=== PATIENT | male | born 1990 | race Hispanic/Latino ===

== ENCOUNTER 2024-11-16 12:33 | Emergency (ER) | payer SELFPAY ==
[2024-11-16 12:38] VITALS: BP 145/98
[2024-11-16 15:41] LABS: Glucose - Point of Care 139 mg/dl (70-99)
--- NOTE | 2024-11-16 15:42 | ED.GENMED ---
History of Present Illness
General
Chief Complaint: Eye Problems
Source: patient
Exam Limitations: none
Time Seen by Provider: 11/16/24 14:30
Nursing documentation reviewed up to this point in time: agreed with
History of Present Illness
History of Present Illness:
Patient is a 34-year-old Wallisian-speaking male presents to the ER for evaluation. Language line used for interpretation. Patient reports he has had gradual vision issues for the past year. He did see an microbiology professor in [place] though he
does not know the name. Last saw microbiology professor 1 month ago. he mentions a questionable diagnosis of glaucoma and eye problems related to diabetes as per his microbiology professor.
he presents here for gradual decrease in his vision. He reports the vision is worse in his left eye he almost has no vision from his left eye but the right eye is now decreased as well. He can only see light from the left eye. From the right eye
he describes seeing a white film in the center of his eye but has better vision on the sides of his visual field.
He was prescribed a medicine dorzolamide hydrochloride timolol.
He does have a history of diabetes and high blood pressure however does not have physician and therefore takes no medication. He was on diabetic oral medication previously the past.
Review of Systems
Review of Systems
Allergies reviewed?: Yes
All Other Systems: ROS reviewed and negative except as documented in HPI and ROS
Constitutional: Reports no symptoms
EENT: Reports other (Decreased vision from bilateral eyes worse on the left)
Respiratory: Reports no symptoms
Cardiac: Reports no symptoms
ABD/GI: Reports no symptoms
Musculoskeletal: Reports no symptoms
Skin: Reports no symptoms
Neurological: Reports no symptoms
Psychiatric: Reports no symptoms
Phy Exam
General Physical Exam
General Presentation: no apparent distress
General age: appears stated age
General Skin: warm and dry
General Habitus: normal
General Mental: alert
General Hydration: appears well hydrated
ENT Exam
ENT Exam: other (Patient seems to have difficulty tracking bilateral eyes)
Eye Exam
Eye Exam: PERRL, EOMI and other (Pupils equal reactive left eye mildly injected pressure to left eye 29 , right eye 21, unable to obtain visual acuity due to decreased vision ; left conjunctiva mildly injected )
Eye Exam General: PERRL: bilateral and EOM intact: bilateral
Pupil Exam: Bilateral: round and reactive
Cardiovascular Exam
Cardiovascular Exam: regular rate/rhythm, no murmur and normal peripheral pulses
Neurological Exam
Neurological Exam: alert and oriented x3
Musculoskeletal Exam
Musculoskeletal Exam: full ROM
Skin Exam
Skin Exam: normal color and warm/dry
Psychiatric Exam
Psychiatric Exam: normal mood/affect
Course
Orders/Labs/Results
Orders:
Orders
11/16/24 14:37
Phosphate Enema [Fleet Phosphate Enema-Adult] 135 ml RECTAL NOW STA
Abnormal Lab Results
11/16/24
15:39
POC Glucose 139 H mg/dl
(70-99)
Vital Signs
Initial and Last Documented VS:
Initial Vital Signs
Temp Pulse Resp BP Pulse Ox
98.2 F 80 17 145/98 99
11/16/24 12:38 11/16/24 12:38 11/16/24 12:38 11/16/24 12:38 11/16/24 12:38
Last Documented Vital Signs
Temp Pulse Resp BP Pulse Ox
98.2 F 80 17 145/98 99
11/16/24 12:38 11/16/24 12:38 11/16/24 12:38 11/16/24 12:38 11/16/24 12:38
MDM/Problems Addressed
MDM/Problems Addressed:
As documented patient is a 34-year-old male who is Wallisian-speaking language line was used. He reports has had gradual decreased vision and visual changes for the past year. He has been seen by ophthalmology in [place] and is prescribed
eyedrops for glaucoma. And was told that his changes are likely related to diabetes not treated. patient was last seen by ophthalmology last month however over the past couple weeks reports vision worse of his left eye. His left eye he can only
see the light out of his right eye he reports there is a central area of white he has better vision from his periphery out of his right eye. I am unable to fully get a visual acuity because patient has such decreased vision. He has no associated
headache.
He is not currently on any medications for hypertension diabetes though he does have a history of this. His blood sugar was 139.
As documented above changes are not new they have progressively worsened over the past year. I spoke with ophthalmology on-call they will see him tomorrow in the office at 11 AM patient was given instructions and I discussed the importance of
outpatient follow-up.
In addition aside from ophthalmology since patient does not have a family provider or healthcare insurance we will refer him to [facility]. I did review with patient and girlfriend the importance of being evaluated for his pre-existing
conditions of diabetes and her blood pressure likely will need medications.
Chronic conditions affecting care:
NIDDM, HTN
*Pulse Oximetry
Patient hypoxic: no
*Critical Care Note
Total Time (30-74mins, 75-104mins- exclusive of procedures): Not Applicable
Patient Management
Discussion with other providers: Single Fold Machine Operator (Ophthalmology )
ED Attending Note
-
Portions of this chart may have been created with voice recognition software.� Occasional wrong word or��sound alike� substitutions may have occurred due to the inherent limitations of voice recognition software.
Discharge Plan
Departure
Patient Disposition: Home (Routine Discharge)
Date of Disposition: 11/16/24
Time of Disposition: 16:31
Patient with high blood pressure during this ER visit?: Yes
Condition: Fair
Covid-19: Not Applicable
Discharge Problem:
Vision problem
Instructions: BLOOD PRESSURE
Referrals:
Marisela Domínguez MD [Active] -
NONE,* [Family Provider] -
Activity Restrictions/Additional Instructions:
Ve al oftalmologo manana at 11am
[facility]
[facility]
Dave llame a la victorino�gonzález Marina Verma para programar fransisca lexie para que lo rocío un m�dico para el tratamiento de sanders presi�n arterial y diabetes. [phone]
Interventions
Interventions:
*Risk Screen - Suicide Last Done: 11/16/24 12:43
*General Assessment Last Done: 11/16/24 12:43
*Neglect/Abuse Screening Last Done: 11/16/24 12:43
*ED COVID-19 Vaccine History Last Done: 11/16/24 12:43
*Nursing Disposition Last Done: 11/16/24 16:40
Discharge Date and Time
Discharge Date/Time: 11/16/24 17:02
Print Language: NAMIBIAN
== END 2024-11-16 17:02 | disposition home or self-care (01) ==
LOC: EMR 12:33
PROVIDERS: EMERGENCY PHYSICIAN Emergency Medicine
DX: H53.8 Other visual disturbances (principal); E11.9 Type 2 diabetes mellitus without complications; I10 Essential (primary) hypertension; Z59.71 Insufficient health insurance coverage
CPT/HCPCS: 99282; 82962

== ENCOUNTER → 2024-11-25 16:37 | Outpatient (REF) | payer OTHER, SELFPAY ==
[2024-11-25 17:15] LABS: % Basophils 0.6 % (0-2); % Eosinophils 7.4 % (0-6); % Immature Granulocytes 0.1 % (0-0.5); % Lymphocytes 36.3 % (20.5-51.1); % Monocytes 6.3 % (1.7-9.3); % Neutrophils 49.3 % (42.2-75.2); Absolute Basophils 0.1 10^3/uL (0-0.2); Absolute Eosinophils 0.6 10^3/uL (0-0.7); Absolute Lymphocytes 3.1 10^3/uL (1.2-3.4); Absolute Monocytes 0.5 10^3/uL (0.1-0.6); Absolute Neutrophils 4.2 10^3/uL (1.4-6.5); Hematocrit 46.5 % (39.0-52.0); Hemoglobin 15.9 g/dL (13.0-18.0); Mean Corp Hgb Conc. 34.2 g/dL (33.0-37.0); Mean Corpuscular Hgb 28.3 pg (27.0-31.0); Mean Corpuscular Volume 82.7 fL (80.0-94.0); Mean Platelet Volume 9.9 fL (7.4-10.4); Nucleated Red Blood Cells % 0 % (-); Platelet Count 264 10^3/uL (130-400); Red Blood Cell Count 5.62 10^6/uL (4.70-6.10); Red Cell Dist. Width 12.3 % (11.5-14.5); Reticulocyte Count 1.6 % (0.4-2.8); Urine Albumin Negative (Neg - Trace); Urine Bilirubin Negative (Negative); Urine Character Clear (Clear); Urine Color Yellow; Urine Glucose 4+ (Negative); Urine Ketone Negative (Negative); Urine Leukocyte Negative (Negative); Urine Nitrite Negative (Negative); Urine Occult Blood Negative (Negative); Urine Specific Gravity 1.015 (<1.030); Urine Urobilinogen Negative (Neg - 1+); White Blood Cell Count 8.5 10^3/uL (4.8-10.8)
[2024-11-25 17:36] LABS: ALT (SGPT) 57 U/L (0-50); AST (SGOT) 25 U/L (17-59); Alkaline Phosphatase 57 U/L (38-126); Blood Urea Nitrogen 19 mg/dl (9-20); Calcium 9.8 mg/dl (8.4-10.2); Carbon Dioxide 29 mmol/L (22-30); Chloride 101 mmol/L (98-107); Glucose 374 mg/dl (70-99); HDL Cholesterol 55 mg/dl; LDL Cholesterol, Calculated 95 mg/dl; Potassium 4.6 mmol/L (3.5-5.1); Sodium 140 mmol/L (135-145); Total Bilirubin 0.8 mg/dl (0.2-1.3); Total Cholesterol 183 mg/dl (50-199); Total Protein 8.3 g/dl (6.3-8.2); Triglyceride 168 mg/dl (10-149); Very Low Density Lipoprotein 33 mg/dl (0-30); eGFR > 60.00
[2024-11-25 17:38] LABS: Microalbumin, Random Urine 3.2 mg/dl (0.6-1.7); Microalbumin/creatinine Ratio 48.5 mg/g
[2024-11-26 09:46] LABS: Glycohemoglobin (HgbA1c) 9.1 % (4.0-5.6)
== END ==
LOC: CLINIC 16:37
PROVIDERS: ATTENDING PHYSICIAN Internal Medicine
DX: E13.3 Other specified diabetes mellitus with ophthalmic complications (principal)
CPT/HCPCS: 36415; 80053; 80061; 81003; 82043; 82570; 83036; 85025; 85045